=== PATIENT | male | born 1955 | race Caucasian/White ===

== ENCOUNTER 2017-04-06 19:22 | Inpatient (IN) | payer BC, OTHER ==
[~2017-04-06] VITALS: Ht 175.3 cm; Wt 81.0 kg
[~2017-04-06 19:22] MED LIST: AMLODIPINE BESY10 MG PO; ASCORBIC ACID500 M3 PO; ASPIRIN81 M2 PO; CALCIUM ACETAT667 MG PO; CATAPRES0.1 MG PO; DAILY VITE1 EAC1 PO; EMLA 30 GM30 GM TP; IRON TAB PO; LABETALOL HCL100 MG PO; LANTUS 3 M100 UNITS1 SC; LEVAQUIN500 MG PO; LEVAQUIN750 MG PO; LIPITOR20 MG PO; LISINOPRIL20 MG PO; METOPROLOL SUCC25 MG PO; METOPROLOL SUCC50 MG PO; NOVOLOG100 UNIT/1 SC; PRILOSEC20 MG PO; VITAMIN D1000 UNIT PO; ZANTAC150 MG PO; ZETIA10 MG PO
[2017-04-06 20:14] LABS: HEMATOCRIT 30.1 % (38.0-50.0); MCH 28.7 PG (29.0-34.0); MCHC 32.9 G/DL (30.0-36.0); MCV 87.2 FL (86-99); MEAN PLAT.VOLUME 9.7 uM^3 (9.0-12.4); PLATELET COUNT 112 K/uL (156-360); RBC DIS.WIDTH-CV 18.6 % (11.8-14.6); RBC DIS.WIDTH-SD 59.3 % (39-53); RED BLOOD COUNT 3.45 M/uL (4.00-5.50)
[2017-04-06 20:18] LABS: CHLORIDE 97 mEq/L (99-109); POTASSIUM 4.4 mEq/L (3.7-5.4); SODIUM 137 mEq/L (136-147)
[2017-04-06 20:19] LABS: GLUCOSE 126 mg/dL (70-99)
[2017-04-06 20:21] LABS: ANION GAP 13 MEQ/L (2-14)
[2017-04-06 20:23] LABS: GFR ESTIMATE (CALCULATED) 11 mL/min/
[2017-04-06 20:24] LABS: UREA NITROGEN (BUN) 43 mg/dL (9-23)
[2017-04-06 20:46] LABS: TROP-I INTERPRETATION POSITIVE; TROPONIN-I 11.83 ng/mL (0.0-0.30)
[2017-04-06 21:26] LABS: INTER. NORMALIZED RATIO 1.4; PROTHROMBIN TIME 13.9 (9.2-11.2); PTT 32.9 (25-32)
[2017-04-06] MEDS ORDERED: ZESTRIL20 MG PO (21:29)
[2017-04-06] MEDS ORDERED: DIALYVITE 3,001 EACH PO (21:30)
[2017-04-06] MEDS ORDERED: SENSIPAR90 MG PO (21:31)
[2017-04-06] MEDS ORDERED: FUROSEMIDE20 MG PO (21:31)
[2017-04-06] MEDS ORDERED: COMPAZINE10 MG PO (21:32)
[2017-04-06] MEDS ORDERED: DIALYSIS (21:33)
[2017-04-07 01:12] VITALS: BP 112/68
[2017-04-07 04:33] VITALS: BP 126/64
[2017-04-07 06:24] LABS: TROP-I INTERPRETATION POSITIVE; TROPONIN-I 10.19 ng/mL (0.0-0.30)
[2017-04-07 06:25] LABS: HEMATOCRIT 30.6 % (38.0-50.0); MCH 28.7 PG (29.0-34.0); MCHC 32.7 G/DL (30.0-36.0); MCV 87.9 FL (86-99); MEAN PLAT.VOLUME 10.6 uM^3 (9.0-12.4); PLATELET COUNT 109 K/uL (156-360); RBC DIS.WIDTH-CV 18.8 % (11.8-14.6); RBC DIS.WIDTH-SD 59.7 % (39-53); RED BLOOD COUNT 3.48 M/uL (4.00-5.50); WHITE BLOOD COUNT 6.2 K/uL (4.1-10.2)
[2017-04-07 06:39] LABS: DIRECT BILIRUBIN 0.9 mg/dL (0.0-0.3); TOTAL BILIRUBIN 1.6 MG/DL (0.0-1.0)
[2017-04-07 06:44] LABS: ALKALINE PHOSPHATASE 272 IU/L (3-129)
[2017-04-07 08:12] VITALS: BP 134/63
[2017-04-07 08:24] LABS: POINT-OF-CARE METER ID UU14174216
[2017-04-07 14:48] LABS: TROP-I INTERPRETATION POSITIVE; TROPONIN-I 10.73 ng/mL (0.0-0.30)
[2017-04-07 16:49] LABS: POINT-OF-CARE METER ID UU13113819
[2017-04-07 18:56] LABS: ANION GAP 16 MEQ/L (2-14); CHLORIDE 97 MEQ/L (99-109); POTASSIUM 4.7 MEQ/L (3.7-5.4); SAMPLE HEMOLYSIS CHECK 0; SAMPLE ICTERIC CHECK 0; SAMPLE LIPEMIA CHECK 0; SODIUM 136 MEQ/L (136-147)
[2017-04-07 19:02] LABS: GFR ESTIMATE (CALCULATED) 10 mL/min/; UREA NITROGEN (BUN) 52 mg/dL (9-23)
[2017-04-07 19:53] LABS: GLUCOSE 85 mg/dL (70-99)
[2017-04-07 22:29] VITALS: BP 142/63
[2017-04-07 22:38] LABS: POINT-OF-CARE METER ID UU13113781
[2017-04-07 23:14] LABS: HEMATOCRIT 33.5 % (38.0-50.0); MCH 28.4 PG (29.0-34.0); MCHC 32.2 G/DL (30.0-36.0); MCV 88.2 FL (86-99); MEAN PLAT.VOLUME 9.5 uM^3 (9.0-12.4); PLATELET COUNT 123 K/uL (156-360); RBC DIS.WIDTH-CV 18.8 % (11.8-14.6); RBC DIS.WIDTH-SD 61.3 % (39-53); WHITE BLOOD COUNT 5.8 K/uL (4.1-10.2)
[2017-04-07 23:22] LABS: CHLORIDE 98 mEq/L (99-109); POTASSIUM 4.1 mEq/L (3.7-5.4); SODIUM 138 mEq/L (136-147)
[2017-04-07 23:23] LABS: GLUCOSE 96 mg/dL (70-99)
[2017-04-07 23:25] LABS: ANION GAP 12 MEQ/L (2-14); INTER. NORMALIZED RATIO 1.3; PROTHROMBIN TIME 13.4 (9.2-11.2)
[2017-04-07 23:27] LABS: GFR ESTIMATE (CALCULATED) 16 mL/min/
[2017-04-07 23:28] LABS: UREA NITROGEN (BUN) 28 mg/dL (9-23)
[2017-04-07 23:38] LABS: TROP-I INTERPRETATION POSITIVE; TROPONIN-I 11.37 ng/mL (0.0-0.30)
[2017-04-08 00:06] LABS: ANISOCYTOSIS 2+; EOSINOPHIL (%) 0.5 % (0-5); IMMATURE GRANULOCYTE (%) 0.5 % (0.0-0.7); LYMPHOCYTE COUNT 0.3 K/uL (1.0-2.8); MACROCYTES 1+; MICROCYTOSIS 1+; MONOCYTE (%) 7.6 % (3-12); MONOCYTE COUNT 0.4 K/uL (0-0.8); NEUTROPHIL (%) 85.7 % (45-76); OVALOCYTES 2+; POIKILOCYTOSIS 1+
[2017-04-08 00:45] VITALS: BP 127/58
[2017-04-08 04:50] VITALS: BP 136/60
[2017-04-08 07:05] LABS: MCH 27.9 PG (29.0-34.0); MCHC 31.9 G/DL (30.0-36.0); MCV 87.3 FL (86-99); MEAN PLAT.VOLUME 10.7 uM^3 (9.0-12.4); PLATELET COUNT 125 K/uL (156-360); RBC DIS.WIDTH-CV 18.7 % (11.8-14.6); RBC DIS.WIDTH-SD 60.6 % (39-53); RED BLOOD COUNT 3.55 M/uL (4.00-5.50); WHITE BLOOD COUNT 5.9 K/uL (4.1-10.2)
[2017-04-08 07:26] LABS: ALKALINE PHOSPHATASE 256 IU/L (3-129); ANION GAP 11 MEQ/L (2-14); CHLORIDE 95 MEQ/L (99-109); GFR ESTIMATE (CALCULATED) 15 mL/min/; GLUCOSE 107 mg/dL (70-99); POTASSIUM 4.2 MEQ/L (3.7-5.4); SAMPLE HEMOLYSIS CHECK 0; SAMPLE ICTERIC CHECK 0; SAMPLE LIPEMIA CHECK 0; SODIUM 133 MEQ/L (136-147); TOTAL BILIRUBIN 1.6 MG/DL (0.0-1.0); UREA NITROGEN (BUN) 29 mg/dL (9-23)
[2017-04-08 07:27] LABS: ANION GAP 12 MEQ/L (2-14); CHLORIDE 95 MEQ/L (99-109); GFR ESTIMATE (CALCULATED) 15 mL/min/; GLUCOSE 106 mg/dL (70-99); POTASSIUM 4.3 MEQ/L (3.7-5.4); SAMPLE HEMOLYSIS CHECK 0; SAMPLE ICTERIC CHECK 0; SAMPLE LIPEMIA CHECK 0; SODIUM 134 MEQ/L (136-147); UREA NITROGEN (BUN) 30 mg/dL (9-23)
[2017-04-08 07:57] VITALS: BP 136/63
[2017-04-08 08:27] LABS: EOSINOPHIL (%) 0.2 % (0-5); IMMATURE GRANULOCYTE (%) 0.3 % (0.0-0.7); INSTRUMENT ABS NEUTROPHIL CT 5.1 K/uL; LYMPHOCYTE COUNT 0.3 K/uL (1.0-2.8); MONOCYTE (%) 7.8 % (3-12); MONOCYTE COUNT 0.5 K/uL (0-0.8); NEUTROPHIL (%) 86.3 % (45-76); NEUTROPHIL COUNT 5.1 K/uL (1.8-6.4)
[2017-04-08 09:46] LABS: HBSG INDEX 0.23
[2017-04-08 11:04] LABS: POINT-OF-CARE METER ID UU14174216
[2017-04-08 11:30] VITALS: BP 122/59
[2017-04-08 15:00] VITALS: BP 133/65
[2017-04-08 16:41] LABS: POINT-OF-CARE METER ID UU13113781
[2017-04-08 20:00] VITALS: BP 133/64
[2017-04-08 22:21] LABS: POINT-OF-CARE USER ID NUTSLF44
[2017-04-09 00:17] VITALS: BP 118/56
[2017-04-09 04:37] VITALS: BP 139/62
[2017-04-09 07:47] LABS: EOSINOPHIL (%) 0.8 % (0-5); EOSINOPHIL COUNT 0.1 K/uL (0-0.3); HEMATOCRIT 30.5 % (38.0-50.0); IMMATURE GRANULOCYTE (%) 0.7 % (0.0-0.7); INSTRUMENT ABS NEUTROPHIL CT 5.1 K/uL; LYMPHOCYTE COUNT 0.4 K/uL (1.0-2.8); MCH 29.1 PG (29.0-34.0); MCHC 33.1 G/DL (30.0-36.0); MCV 87.9 FL (86-99); MEAN PLAT.VOLUME 10.1 uM^3 (9.0-12.4); MONOCYTE (%) 8.8 % (3-12); MONOCYTE COUNT 0.5 K/uL (0-0.8); NEUTROPHIL (%) 82.4 % (45-76); NEUTROPHIL COUNT 5.1 K/uL (1.8-6.4); PLATELET COUNT 130 K/uL (156-360); RBC DIS.WIDTH-CV 18.9 % (11.8-14.6); RBC DIS.WIDTH-SD 61.4 % (39-53); RED BLOOD COUNT 3.47 M/uL (4.00-5.50); WHITE BLOOD COUNT 6.1 K/uL (4.1-10.2)
[2017-04-09 08:00] VITALS: BP 125/60
[2017-04-09 08:03] LABS: Estimated Average Glucose 143 mg/dL (70-123); HEMOGLOBIN A1c (GLYCOHEMOGLOB) 6.6 % HGB (Below 5.7)
[2017-04-09 08:14] LABS: ALKALINE PHOSPHATASE 283 IU/L (3-129); ANION GAP 12 MEQ/L (2-14); CHLORIDE 93 MEQ/L (99-109); GFR ESTIMATE (CALCULATED) 11 mL/min/; GLUCOSE 90 mg/dL (70-99); HDL CHOLESTEROL 29 MG/DL (Desirable>=40); LDL CHOLESTEROL 47 mg/dL (Desirable<100); NON-HDL CHOLESTEROL 63 mg/dL (Desirable<160); POTASSIUM 4.1 MEQ/L (3.7-5.4); SAMPLE HEMOLYSIS CHECK 0; SAMPLE ICTERIC CHECK 0; SAMPLE LIPEMIA CHECK 0; SODIUM 132 MEQ/L (136-147); TOTAL BILIRUBIN 1.3 MG/DL (0.0-1.0); TOTAL CHOLESTEROL 92 mg/dL (Desirable<200); TRIGLYCERIDES 80 MG/DL (Normal: <150)
[2017-04-09 08:15] LABS: UREA NITROGEN (BUN) 44 mg/dL (9-23)
[2017-04-09 11:52] VITALS: BP 140/65
[2017-04-09 17:42] VITALS: BP 132/60
[2017-04-09 19:30] VITALS: BP 107/54
[2017-04-09 21:01] LABS: POINT-OF-CARE USER ID ENVMNS
[2017-04-10 00:06] VITALS: BP 115/54
[2017-04-10 03:19] VITALS: BP 92/44
[2017-04-10 07:30] VITALS: BP 134/62
[2017-04-10 11:51] VITALS: BP 130/62
[2017-04-10] MEDS ORDERED: DOCUSATE SODIU100 MG PO (13:56)
[2017-04-10] MEDS ORDERED: CLOPIDOGREL75 MG PO (13:56)
== END 2017-04-10 15:54 | disposition home health service (06) | DRG 248 ==
LOC: EME → EDBD 19:22 → EDOF 04-07 00:14 → 4EAST 04-07 00:14
PROVIDERS: Emergency Medicine; Hospitalist; Internal Medicine; Internal Medicine Nephrology
PROC: B2151ZZ Fluoroscopy of Left Heart using Low Osmolar Contrast (ICD-10-PCS; principal; 2017-04-07)
PROC: 3E073KZ Introduction of Other Diagnostic Substance into Coronary Artery, Percutaneous Approach (ICD-10-PCS; principal; 2017-04-07)
PROC: 02703D6 Dilation of Coronary Artery, One Artery, Bifurcation, with Intraluminal Device, Percutaneous Approach (ICD-10-PCS; principal; 2017-04-07)
PROC: B2131ZZ Fluoroscopy of Multiple Coronary Artery Bypass Grafts using Low Osmolar Contrast (ICD-10-PCS; principal; 2017-04-07)
PROC: 4A023N7 Measurement of Cardiac Sampling and Pressure, Left Heart, Percutaneous Approach (ICD-10-PCS; principal; 2017-04-07)
PROC: 5A1D60Z (ICD-10-PCS; 2017-04-07)
DX: I21.4 Non-ST elevation (NSTEMI) myocardial infarction (principal); I63.9 Cerebral infarction, unspecified; I63.233 Cerebral infarction due to unspecified occlusion or stenosis of bilateral carotid arteries; I25.810 Atherosclerosis of coronary artery bypass graft(s) without angina pectoris; I25.10 Atherosclerotic heart disease of native coronary artery without angina pectoris; H53.47 Heteronymous bilateral field defects; I12.0 Hypertensive chronic kidney disease with stage 5 chronic kidney disease or end stage renal disease; N18.6 End stage renal disease; I65.23 Occlusion and stenosis of bilateral carotid arteries; E11.22 Type 2 diabetes mellitus with diabetic chronic kidney disease; E78.5 Hyperlipidemia, unspecified; D69.6 Thrombocytopenia, unspecified; D64.9 Anemia, unspecified; K21.9 Gastro-esophageal reflux disease without esophagitis; Z95.1 Presence of aortocoronary bypass graft; Z99.2 Dependence on renal dialysis; Z79.4 Long term (current) use of insulin; Z87.891 Personal history of nicotine dependence
CPT/HCPCS: 70450; 70496; 70498; 70551; 71020; 80048; 80048 91; 80053; 80061; 80069; 80076; 82948; 83036; 84484; 85025; 85027; 85347; 85610; 85730; 87340; 93005; 93880; 96125 GN; 97530 GP; 99281; 99285; C1760; C1769; C1876; C1887; C1894; J0153; J1644; J1815; J2250; J2270; J3010; J3246; J7030; J7040; S0028

== ENCOUNTER → 2017-04-14 | Outpatient (CLI) | payer BC, OTHER ==
[~2017-04-14] MED LIST changes: +AGONEAZE 2.5%-1 EACH TP; +CLOPIDOGREL75 MG PO; +COLACE100 MG PO; +COMPAZINE10 MG PO; +DIALYSIS; +DIALYVITE 3,001 EACH PO; +DOCUSATE SODIU100 MG PO; +FUROSEMIDE20 MG PO; +SENSIPAR90 MG PO; +ZESTRIL20 MG PO
== END | disposition home or self-care (01) ==
LOC: RAD 12:43
DX: J90 Pleural effusion, not elsewhere classified (principal); J98.11 Atelectasis
CPT/HCPCS: 71020; 94640

== ENCOUNTER 2017-04-15 19:27 | Inpatient (IN) | payer BC, OTHER ==
[~2017-04-15] VITALS: Ht 175.3 cm; Wt 79.9 kg
[~2017-04-15 19:27] MED LIST changes: -AGONEAZE 2.5%-1 EACH TP; -COLACE100 MG PO
[2017-04-15 21:06] LABS: CHLORIDE 99 mEq/L (99-109); POTASSIUM 4.7 mEq/L (3.7-5.4)
[2017-04-15 21:08] LABS: GLUCOSE 142 mg/dL (70-99); HEMATOCRIT 31.9 % (38.0-50.0); MCH 28.6 PG (29.0-34.0); MCHC 32.3 G/DL (30.0-36.0); MCV 88.6 FL (86-99); MEAN PLAT.VOLUME 9.7 uM^3 (9.0-12.4); PLATELET COUNT 131 K/uL (156-360); RBC DIS.WIDTH-CV 19.1 % (11.8-14.6); RBC DIS.WIDTH-SD 61.7 % (39-53); WHITE BLOOD COUNT 9.9 K/uL (4.1-10.2)
[2017-04-15 21:09] LABS: ANION GAP 15 MEQ/L (2-14)
[2017-04-15 21:12] LABS: GFR ESTIMATE (CALCULATED) 11 mL/min/
[2017-04-15 21:13] LABS: SODIUM 140 mEq/L (136-147); UREA NITROGEN (BUN) 45 mg/dL (9-23)
[2017-04-16] VITALS (7 sets, daily range): BP systolic 104–142; BP diastolic 60–71
[2017-04-16] MEDS ORDERED: AGONEAZE 2.5%-1 EACH TP (00:40)
[2017-04-16] MEDS ORDERED: CLOPIDOGREL75 MG PO (00:40)
[2017-04-16] MEDS ORDERED: COLACE100 MG PO (00:40)
[2017-04-16 03:23] LABS: TOTAL BILIRUBIN 1.2 mg/dL (0.0-1.0)
[2017-04-16 03:24] LABS: ALKALINE PHOSPHATASE 400 IU/L (3-129)
[2017-04-16 03:27] LABS: DIRECT BILIRUBIN 0.8 mg/dL (0.0-0.3)
[2017-04-16 10:41] LABS: HEMATOCRIT 32.2 % (38.0-50.0); MCH 28.2 PG (29.0-34.0); MCHC 31.7 G/DL (30.0-36.0); MEAN PLAT.VOLUME 11.1 uM^3 (9.0-12.4); PLATELET COUNT 160 K/uL (156-360); RBC DIS.WIDTH-CV 19.2 % (11.8-14.6); RED BLOOD COUNT 3.62 M/uL (4.00-5.50); WHITE BLOOD COUNT 8.6 K/uL (4.1-10.2)
[2017-04-16 10:48] LABS: CHLORIDE 100 mEq/L (99-109); POTASSIUM 4.7 mEq/L (3.7-5.4); SODIUM 139 mEq/L (136-147)
[2017-04-16 10:51] LABS: ANION GAP 15 MEQ/L (2-14)
[2017-04-16 10:53] LABS: GLUCOSE 238 mg/dL (70-99)
[2017-04-16 10:54] LABS: GFR ESTIMATE (CALCULATED) 10 mL/min/
[2017-04-16 10:55] LABS: UREA NITROGEN (BUN) 55 mg/dL (9-23)
[2017-04-17 04:00] VITALS: BP 135/62
[2017-04-17 07:59] VITALS: BP 154/71
[2017-04-17 08:02] LABS: HEMATOCRIT 28.4 % (38.0-50.0); MCH 29.7 PG (29.0-34.0); MCHC 34.2 G/DL (30.0-36.0); MCV 86.9 FL (86-99); RBC DIS.WIDTH-CV 21.2 % (11.8-14.6); RBC DIS.WIDTH-SD 63.8 % (39-53); RED BLOOD COUNT 3.27 M/uL (4.00-5.50); WHITE BLOOD COUNT 9.1 K/uL (4.1-10.2)
[2017-04-17 08:03] LABS: PLATELET COUNT 438 K/uL (156-360)
[2017-04-17 08:37] LABS: ANION GAP 13 MEQ/L (2-14); CHLORIDE 97 MEQ/L (99-109); GFR ESTIMATE (CALCULATED) 15 mL/min/; GLUCOSE 244 mg/dL (70-99); SAMPLE HEMOLYSIS CHECK 0; SAMPLE ICTERIC CHECK 0; SAMPLE LIPEMIA CHECK 0; SODIUM 138 MEQ/L (136-147); UREA NITROGEN (BUN) 42 mg/dL (9-23)
[2017-04-17 11:59] LABS: POINT-OF-CARE METER ID UU14174225
[2017-04-17 12:23] VITALS: BP 144/71
[2017-04-17 15:35] VITALS: BP 144/71
[2017-04-17 19:42] VITALS: BP 131/60
[2017-04-17 21:50] LABS: POINT-OF-CARE METER ID UU14188625
[2017-04-17 23:55] VITALS: BP 124/68
[2017-04-18 03:49] VITALS: BP 121/64
[2017-04-18 07:42] VITALS: BP 146/79
[2017-04-18 11:34] VITALS: BP 138/68
[2017-04-18 12:23] LABS: HBSG INDEX 0.24
[2017-04-18 15:47] VITALS: BP 162/74
[2017-04-18 18:17] LABS: CHLORIDE 96 mEq/L (99-109); POTASSIUM 4.6 mEq/L (3.7-5.4); SODIUM 137 mEq/L (136-147)
[2017-04-18 18:19] LABS: GLUCOSE 257 mg/dL (70-99)
[2017-04-18 18:21] LABS: ANION GAP 15 MEQ/L (2-14)
[2017-04-18 18:39] LABS: UREA NITROGEN (BUN) 76 mg/dL (9-23)
[2017-04-18 18:40] LABS: ALKALINE PHOSPHATASE 295 IU/L (3-129); GFR ESTIMATE (CALCULATED) 9 mL/min/; TOTAL BILIRUBIN 0.8 mg/dL (0.0-1.0)
[2017-04-18 19:45] VITALS: BP 148/71
[2017-04-18 23:42] VITALS: BP 137/65
[2017-04-19 03:51] VITALS: BP 133/71
[2017-04-19 08:20] VITALS: BP 153/74
[2017-04-19 08:20] LABS: POINT-OF-CARE METER ID UU14174225
[2017-04-19] MEDS ORDERED: CEFDINIR300 MG PO (10:52)
[2017-04-19] MEDS ORDERED: SPIRIVA RESPIMAT4 GM IH (10:53)
[2017-04-19] MEDS ORDERED: MUCINEX600 MG PO (10:53)
[2017-04-19] MEDS ORDERED: BENZONATATE100 MG PO (10:53)
[2017-04-19 11:58] LABS: HEMATOCRIT 29.6 % (38.0-50.0); MCH 28.8 PG (29.0-34.0); MCHC 32.8 G/DL (30.0-36.0); MCV 87.8 FL (86-99); RBC DIS.WIDTH-CV 19.1 % (11.8-14.6); RED BLOOD COUNT 3.37 M/uL (4.00-5.50)
[2017-04-19 12:05] LABS: ANION GAP 16 MEQ/L (2-14); CHLORIDE 97 MEQ/L (99-109); GFR ESTIMATE (CALCULATED) 8 mL/min/; GLUCOSE 298 mg/dL (70-99); POTASSIUM 4.8 MEQ/L (3.7-5.4); SAMPLE HEMOLYSIS CHECK 0; SAMPLE ICTERIC CHECK 0; SAMPLE LIPEMIA CHECK 0; SODIUM 135 MEQ/L (136-147); UREA NITROGEN (BUN) 96 mg/dL (9-23)
[2017-04-19] MEDS ORDERED: PREDNISONE10 MG PO (12:27)
[2017-04-19 12:40] LABS: PLAT.SUFFICIENCY ADEQUATE
[2017-04-19 12:41] LABS: MEAN PLAT.VOLUME 10.3 uM^3 (9.0-12.4); PLATELET COUNT 166 K/uL (156-360)
[2017-04-19 15:39] VITALS: BP 132/65
== END 2017-04-19 16:28 | disposition home health service (06) | DRG 190 ==
LOC: EME 19:27 → 5SOUTH 23:05 → EDOF 23:05 → 5SOUTH 04-16 00:09
PROVIDERS: Internal Medicine; Internal Medicine Nephrology; Physician Assistant; Physician Assistant Medical; Surgery
PROC: 5A1D60Z (ICD-10-PCS; principal; 2017-04-16)
DX: J44.0 Chronic obstructive pulmonary disease with (acute) lower respiratory infection (principal); J69.0 Pneumonitis due to inhalation of food and vomit; J18.9 Pneumonia, unspecified organism; J90 Pleural effusion, not elsewhere classified; R18.8 Other ascites; I12.0 Hypertensive chronic kidney disease with stage 5 chronic kidney disease or end stage renal disease; N18.6 End stage renal disease; D63.1 Anemia in chronic kidney disease; I25.10 Atherosclerotic heart disease of native coronary artery without angina pectoris; J44.1 Chronic obstructive pulmonary disease with (acute) exacerbation; K80.21 Calculus of gallbladder without cholecystitis with obstruction; E11.22 Type 2 diabetes mellitus with diabetic chronic kidney disease; Z99.2 Dependence on renal dialysis; R60.0 Localized edema; E11.21 Type 2 diabetes mellitus with diabetic nephropathy; E11.319 Type 2 diabetes mellitus with unspecified diabetic retinopathy without macular edema; E11.42 Type 2 diabetes mellitus with diabetic polyneuropathy; Z79.4 Long term (current) use of insulin; I25.2 Old myocardial infarction; E11.51 Type 2 diabetes mellitus with diabetic peripheral angiopathy without gangrene; E78.5 Hyperlipidemia, unspecified; I35.0 Nonrheumatic aortic (valve) stenosis; I65.29 Occlusion and stenosis of unspecified carotid artery; Z87.891 Personal history of nicotine dependence; H54.12 Blindness, left eye, low vision right eye; R09.02 Hypoxemia; Y95 Nosocomial condition; H53.47 Heteronymous bilateral field defects; I69.398 Other sequelae of cerebral infarction; R79.89 Other specified abnormal findings of blood chemistry
CPT/HCPCS: 71020; 71250; 76705; 80048; 80053; 80069; 80076; 82948; 85027; 87040; 87340; 93005; 94640; 94640 76; 99202; 99281; 99285; J0696; J1644; J1815; J2930; J7050; S0030

== ENCOUNTER 2017-05-03 05:42 | Emergency (ER) | payer OTHER, BC ==
[~2017-05-03] VITALS: Ht 175.3 cm; Wt 80.2 kg
[~2017-05-03 05:42] MED LIST changes: +AGONEAZE 2.5%-1 EACH TP; +BENZONATATE100 MG PO; +CEFDINIR300 MG PO; +COLACE100 MG PO; +MUCINEX600 MG PO; +PREDNISONE10 MG PO; +SPIRIVA RESPIMAT4 GM IH
[2017-05-03 06:59] LABS: CHLORIDE 97 mEq/L (99-109); EOSINOPHIL (%) 1.7 % (0-5); EOSINOPHIL COUNT 0.1 K/uL (0-0.3); HEMATOCRIT 27.6 % (38.0-50.0); IMMATURE GRANULOCYTE (%) 0.3 % (0.0-0.7); INSTRUMENT ABS NEUTROPHIL CT 5.3 K/uL; LYMPHOCYTE COUNT 0.5 K/uL (1.0-2.8); MCHC 32.2 G/DL (30.0-36.0); MCV 89.9 FL (86-99); MONOCYTE COUNT 0.5 K/uL (0-0.8); NEUTROPHIL (%) 81.7 % (45-76); NEUTROPHIL COUNT 5.3 K/uL (1.8-6.4); POTASSIUM 4.9 mEq/L (3.7-5.4); RBC DIS.WIDTH-CV 20.1 % (11.8-14.6); RBC DIS.WIDTH-SD 65.3 % (39-53); RED BLOOD COUNT 3.07 M/uL (4.00-5.50); SODIUM 137 mEq/L (136-147); WHITE BLOOD COUNT 6.5 K/uL (4.1-10.2)
[2017-05-03 07:01] LABS: GLUCOSE 98 mg/dL (70-99)
[2017-05-03 07:03] LABS: ANION GAP 17 MEQ/L (2-14)
[2017-05-03 07:05] LABS: ALKALINE PHOSPHATASE 252 IU/L (3-129); GFR ESTIMATE (CALCULATED) 7 mL/min/
[2017-05-03 07:07] LABS: DIRECT BILIRUBIN 0.6 mg/dL (0.0-0.3)
[2017-05-03 07:08] LABS: LIPASE 20 U/L (1.0-51.0); UREA NITROGEN (BUN) 102 mg/dL (9-23)
[2017-05-03 07:25] LABS: ADD MIUA? YES; BILIRUBIN NEGATIVE; BLOOD NEGATIVE; COLOR YELLOW ((YELLOW)); GLUCOSE (STRIP) 50; KETONES NEGATIVE; LEUKOCYTES TRACE; NITRITE NEGATIVE; PROTEIN (STRIP) 100; UROBILINOGEN 0.2 MG/DL (0.2-1.0)
[2017-05-03 07:29] LABS: BACTERIA RARE /HPF; EPITHELIAL CELLS RARE /HPF; MUCUS NONE SEEN /LPF; RED BLOOD CELLS 0-5 /HPF (0-5); WHITE BLOOD CELLS 0-5 /HPF (0-5)
[2017-05-03 08:00] LABS: MEAN PLAT.VOLUME 10.7 uM^3 (9.0-12.4); PLAT.SUFFICIENCY DECREASED
[2017-05-03 08:02] LABS: PLATELET COUNT 101 K/uL (156-360)
[2017-05-03] MEDS ORDERED: CIPRO500 MG PO (10:59)
[2017-05-03] MEDS ORDERED: FLAGYL500 MG PO (10:59)
[2017-05-03 12:03] VITALS: BP 136/61
== END 2017-05-03 12:04 | disposition home or self-care (01) ==
LOC: EME → EDBD 05:42 → EME 05:42
PROVIDERS: Emergency Medicine
DX: R10.30 Lower abdominal pain, unspecified (principal); R11.2 Nausea with vomiting, unspecified; R19.7 Diarrhea, unspecified; I12.9 Hypertensive chronic kidney disease with stage 1 through stage 4 chronic kidney disease, or unspecified chronic kidney disease; N18.9 Chronic kidney disease, unspecified; E11.9 Type 2 diabetes mellitus without complications; E78.5 Hyperlipidemia, unspecified; Z99.2 Dependence on renal dialysis; K21.9 Gastro-esophageal reflux disease without esophagitis; Z95.1 Presence of aortocoronary bypass graft; Z87.891 Personal history of nicotine dependence; Z79.4 Long term (current) use of insulin; Z79.82 Long term (current) use of aspirin
CPT/HCPCS: 74176; 80048; 80076; 81003; 83690; 85025; 87493; 99281; 99285

== ENCOUNTER 2017-06-06 05:37 | Emergency (ER) | payer BC, OTHER ==
[~2017-06-06] VITALS: Ht 175.3 cm; Wt 82.1 kg
[~2017-06-06 05:37] MED LIST changes: +CIPRO500 MG PO; +FLAGYL500 MG PO
[2017-06-06 06:08] LABS: EOSINOPHIL (%) 1.7 % (0-5); EOSINOPHIL COUNT 0.1 K/uL (0-0.3); HEMATOCRIT 29.5 % (38.0-50.0); IMMATURE GRANULOCYTE (%) 0.2 % (0.0-0.7); LYMPHOCYTE COUNT 0.6 K/uL (1.0-2.8); MCHC 30.2 G/DL (30.0-36.0); MCV 96.1 FL (86-99); MEAN PLAT.VOLUME 9.7 uM^3 (9.0-12.4); MONOCYTE (%) 10.8 % (3-12); MONOCYTE COUNT 0.4 K/uL (0-0.8); NEUTROPHIL (%) 72.8 % (45-76); PLATELET COUNT 123 K/uL (156-360); RBC DIS.WIDTH-CV 16.6 % (11.8-14.6); RBC DIS.WIDTH-SD 58.3 % (39-53); RED BLOOD COUNT 3.07 M/uL (4.00-5.50); WHITE BLOOD COUNT 4.1 K/uL (4.1-10.2)
[2017-06-06 06:19] LABS: CHLORIDE 98 mEq/L (99-109); POTASSIUM 5.3 mEq/L (3.7-5.4); SODIUM 140 mEq/L (136-147)
[2017-06-06 06:21] LABS: GLUCOSE 124 mg/dL (70-99)
[2017-06-06 06:22] LABS: ANION GAP 14 MEQ/L (2-14)
[2017-06-06 06:24] LABS: ALKALINE PHOSPHATASE 500 IU/L (3-129)
[2017-06-06 06:25] LABS: GFR ESTIMATE (CALCULATED) 10 mL/min/
[2017-06-06 06:26] LABS: UREA NITROGEN (BUN) 50 mg/dL (9-23)
[2017-06-06 06:28] LABS: LIPASE 49 U/L (1.0-51.0)
[2017-06-06 07:55] VITALS: BP 142/63
[2017-06-11] MEDS ORDERED: FERRIC CITRATE210 MG PO (12:57)
[2017-06-11] MEDS ORDERED: SENSIPAR30 MG PO (13:17)
[2017-06-11] MEDS ORDERED: NOVOLOG100 UNIT/1 SC (13:19)
[2017-06-11] MEDS ORDERED: LABETALOL HCL200 MG PO ×2 (13:26→13:27)
== END 2017-06-06 07:57 | disposition home or self-care (01) ==
LOC: EME → EDBD 05:37 → EME 07:57
PROVIDERS: Emergency Medicine
DX: R10.31 Right lower quadrant pain (principal); R10.32 Left lower quadrant pain; G89.29 Other chronic pain; K80.20 Calculus of gallbladder without cholecystitis without obstruction; K57.30 Diverticulosis of large intestine without perforation or abscess without bleeding; I12.0 Hypertensive chronic kidney disease with stage 5 chronic kidney disease or end stage renal disease; E11.22 Type 2 diabetes mellitus with diabetic chronic kidney disease; N18.6 End stage renal disease; Z99.2 Dependence on renal dialysis; Z87.891 Personal history of nicotine dependence; Z79.4 Long term (current) use of insulin; E78.5 Hyperlipidemia, unspecified; Z95.1 Presence of aortocoronary bypass graft; Z79.82 Long term (current) use of aspirin
CPT/HCPCS: 74176; 80053; 81003; 83690; 85025; 99281; 99284

== ENCOUNTER 2017-06-09 07:27 | Emergency (ER) | payer OTHER, BC ==
[~2017-06-09] VITALS: Ht 175.3 cm; Wt 81.0 kg
[2017-06-09 08:10] LABS: HEMATOCRIT 29.5 % (38.0-50.0); MCH 29.4 PG (29.0-34.0); MCHC 30.8 G/DL (30.0-36.0); MCV 95.5 FL (86-99); MEAN PLAT.VOLUME 9.8 uM^3 (9.0-12.4); PLATELET COUNT 135 K/uL (156-360); RBC DIS.WIDTH-CV 16.5 % (11.8-14.6); RBC DIS.WIDTH-SD 57.7 % (39-53); RED BLOOD COUNT 3.09 M/uL (4.00-5.50); WHITE BLOOD COUNT 3.7 K/uL (4.1-10.2)
[2017-06-09 08:51] LABS: ALKALINE PHOSPHATASE 412 IU/L (3-129); ANION GAP 12 MEQ/L (2-14); CHLORIDE 100 MEQ/L (99-109); GFR ESTIMATE (CALCULATED) 10 mL/min/; GLUCOSE 136 mg/dL (70-99); LIPASE 26 U/L (1.0-51.0); POTASSIUM 4.4 MEQ/L (3.7-5.4); SAMPLE HEMOLYSIS CHECK 0; SAMPLE ICTERIC CHECK 0; SAMPLE LIPEMIA CHECK 0; SODIUM 140 MEQ/L (136-147); TOTAL BILIRUBIN 1.1 MG/DL (0.0-1.0); UREA NITROGEN (BUN) 44 mg/dL (9-23)
[2017-06-09 12:18] VITALS: BP 138/71
[2017-06-11] MEDS ORDERED: FERRIC CITRATE210 MG PO (12:57)
[2017-06-11] MEDS ORDERED: SENSIPAR30 MG PO (13:17)
[2017-06-11] MEDS ORDERED: NOVOLOG100 UNIT/1 SC (13:19)
[2017-06-11] MEDS ORDERED: LABETALOL HCL200 MG PO ×2 (13:26→13:27)
[2017-06-16] MEDS ORDERED: LANTUS 3 M100 UNITS1 SC (07:23)
== END 2017-06-09 12:23 | disposition home or self-care (01) ==
LOC: EME 07:27
PROVIDERS: Nurse Practitioner Family
DX: K80.20 Calculus of gallbladder without cholecystitis without obstruction (principal); K59.00 Constipation, unspecified; D64.9 Anemia, unspecified; I12.0 Hypertensive chronic kidney disease with stage 5 chronic kidney disease or end stage renal disease; E11.22 Type 2 diabetes mellitus with diabetic chronic kidney disease; N18.6 End stage renal disease; Z99.2 Dependence on renal dialysis; Z79.4 Long term (current) use of insulin; E78.5 Hyperlipidemia, unspecified; K21.9 Gastro-esophageal reflux disease without esophagitis; Z95.1 Presence of aortocoronary bypass graft; Z87.891 Personal history of nicotine dependence
CPT/HCPCS: 74020; 76705; 80053; 83690; 85027; 93005; 99281; 99284; J7030

== ENCOUNTER 2017-09-08 11:10 | Day surgery (SDC) | payer OTHER, BC ==
[~2017-09-08] VITALS: Ht 175.3 cm; Wt 72.6 kg
[~2017-09-08 11:10] MED LIST changes: +FERRIC CITRATE210 MG PO; +LABETALOL HCL200 MG PO; +LINZESS72 MCG PO; +SENSIPAR30 MG PO; +SPIRIVA RESPIMAT4 G1 IH
[2017-09-08 11:47] LABS: POINT-OF-CARE METER ID UU14174212
[2017-09-08 11:54] LABS: HEMATOCRIT 33.5 % (38.0-50.0); MCH 29.9 PG (29.0-34.0); MCHC 32.2 G/DL (30.0-36.0); MCV 92.8 FL (86-99); MEAN PLAT.VOLUME 10.1 uM^3 (9.0-12.4); PLATELET COUNT 127 K/uL (156-360); RBC DIS.WIDTH-CV 18.2 % (11.8-14.6); RBC DIS.WIDTH-SD 62.5 % (39-53); RED BLOOD COUNT 3.61 M/uL (4.00-5.50); WHITE BLOOD COUNT 3.3 K/uL (4.1-10.2)
[2017-09-08 12:07] VITALS: BP 71/50
[2017-09-08 12:12] LABS: ANION GAP 7 MEQ/L (2-14); CHLORIDE 97 MEQ/L (99-109); SAMPLE HEMOLYSIS CHECK 0; SAMPLE ICTERIC CHECK 0; SAMPLE LIPEMIA CHECK 0; SODIUM 142 MEQ/L (136-147)
[2017-09-08 12:18] LABS: GFR ESTIMATE (CALCULATED) 22 mL/min/; GLUCOSE 59 mg/dL (70-99); UREA NITROGEN (BUN) 18 mg/dL (9-23)
[2017-09-08 12:42] LABS: POINT-OF-CARE METER ID UU14107333
[2017-09-08 12:58] LABS: METH RESISTANT S AUREUS PCR NEGATIVE (NEGATIVE)
[2017-09-08 12:59] LABS: PROBE CHECK PASS; SPECIMEN PROCESSING CONTROL PASS
[2017-09-08 15:28] LABS: POINT-OF-CARE METER ID UU13113675; POINT-OF-CARE USER ID 515036437
[2017-09-08 16:05] VITALS: BP 138/63
[2017-09-08 16:52] VITALS: BP 156/69
== END 2017-09-08 16:54 | disposition home or self-care (01) ==
LOC: SDC 11:10
PROVIDERS: Surgery
DX: T82.41XA Breakdown (mechanical) of vascular dialysis catheter, initial encounter (principal); I12.0 Hypertensive chronic kidney disease with stage 5 chronic kidney disease or end stage renal disease; E11.22 Type 2 diabetes mellitus with diabetic chronic kidney disease; N18.6 End stage renal disease; Z99.2 Dependence on renal dialysis; K21.9 Gastro-esophageal reflux disease without esophagitis; I44.4 Left anterior fascicular block; Z79.4 Long term (current) use of insulin; Z79.82 Long term (current) use of aspirin; Z79.02 Long term (current) use of antithrombotics/antiplatelets; Z95.1 Presence of aortocoronary bypass graft; Z86.73 Personal history of transient ischemic attack (TIA), and cerebral infarction without residual deficits; Z87.891 Personal history of nicotine dependence
CPT/HCPCS: 80048; 82948; 85027; 87641; J0690; J1644; J2250; J2720; J3010

== ENCOUNTER 2017-12-03 05:50 | Inpatient (IN) | payer OTHER, MEDICARE ==
[~2017-12-03] VITALS: Ht 175.3 cm; Wt 73.7 kg
[2017-12-03 07:48] LABS: HEMATOCRIT 33.9 % (38.0-50.0); HEMOGLOBIN 11.1 G/DL (12.5-16.6); MCH 32.8 PG (29.0-34.0); MCHC 32.7 G/DL (30.0-36.0); MCV 100.3 FL (86-99); PLATELET COUNT 116 K/uL (156-360); RBC DIS.WIDTH-CV 15.8 % (11.8-14.6); RBC DIS.WIDTH-SD 58.1 % (39-53); RED BLOOD COUNT 3.38 M/uL (4.00-5.50); WHITE BLOOD COUNT 3.4 K/uL (4.1-10.2)
[2017-12-03 08:19] LABS: CHLORIDE 97 mEq/L (99-109); POTASSIUM 4.8 mEq/L (3.7-5.4); SODIUM 139 mEq/L (136-147)
[2017-12-03 08:21] LABS: GLUCOSE 144 mg/dL (70-99)
[2017-12-03 08:25] LABS: CREATININE 5.4 mg/dL (0.6-1.3); GFR ESTIMATE (CALCULATED) 11 mL/min/ (58.99-99999)
[2017-12-03 08:26] LABS: UREA NITROGEN (BUN) 34 mg/dL (9-23)
[2017-12-03 08:27] LABS: TROP-I INTERPRETATION NEGATIVE; TROPONIN-I 0.06 ng/mL (0.0-0.30)
[2017-12-03 10:34] LABS: INTER. NORMALIZED RATIO 1.2
[2017-12-03 10:37] LABS: PTT 33.4 SEC (25-37)
[2017-12-03 12:27] LABS: HEMOGLOBIN A1c (GLYCOHEMOGLOB) 5.9 % (Below 5.7)
[2017-12-03 20:59] VITALS: BP 153/67
[2017-12-04 00:25] VITALS: BP 140/65
[2017-12-04 07:01] LABS: HEMOGLOBIN 10.7 G/DL (12.5-16.6); MCH 32.5 PG (29.0-34.0); MCHC 32.4 G/DL (30.0-36.0); MCV 100.3 FL (86-99); PLATELET COUNT 112 K/uL (156-360); RBC DIS.WIDTH-CV 15.6 % (11.8-14.6); RBC DIS.WIDTH-SD 57.2 % (39-53); RED BLOOD COUNT 3.29 M/uL (4.00-5.50); WHITE BLOOD COUNT 3.7 K/uL (4.1-10.2)
[2017-12-04 07:25] LABS: CHLORIDE 101 MEQ/L (99-109); GFR ESTIMATE (CALCULATED) 16 mL/min/ (58.99-99999); GLUCOSE 140 mg/dL (70-99); POTASSIUM 4.2 MEQ/L (3.7-5.4); SODIUM 141 MEQ/L (136-147); UREA NITROGEN (BUN) 21 mg/dL (9-23)
[2017-12-04 07:28] VITALS: BP 155/67
[2017-12-04 07:34] LABS: CREATININE 4.1 MG/DL (0.6-1.3)
[2017-12-04] MEDS ORDERED: PROTONIX40 MG PO (09:42)
[2017-12-04] MEDS ORDERED: PLAVIX75 MG PO (11:09)
[2017-12-04 12:00] VITALS: BP 126/60
[2017-12-04 16:00] VITALS: BP 116/60
[2017-12-04 19:55] VITALS: BP 130/65
[2017-12-05 00:55] VITALS: BP 131/59
[2017-12-05 05:05] VITALS: BP 120/56
[2017-12-05 07:07] LABS: HEMOGLOBIN 11.4 G/DL (12.5-16.6); MCHC 31.7 G/DL (30.0-36.0); MCV 101.1 FL (86-99); PLATELET COUNT 128 K/uL (156-360); RBC DIS.WIDTH-CV 15.3 % (11.8-14.6); RBC DIS.WIDTH-SD 56.6 % (39-53); RED BLOOD COUNT 3.56 M/uL (4.00-5.50); WHITE BLOOD COUNT 4.5 K/uL (4.1-10.2)
[2017-12-05 07:29] LABS: CHLORIDE 98 MEQ/L (99-109); GFR ESTIMATE (CALCULATED) 12 mL/min/ (58.99-99999); SODIUM 140 MEQ/L (136-147); UREA NITROGEN (BUN) 31 mg/dL (9-23)
[2017-12-05 07:35] LABS: CREATININE 5.3 MG/DL (0.6-1.3); GLUCOSE 81 mg/dL (70-99)
[2017-12-05 08:55] LABS: TYPE OF FLUID PLEURAL
[2017-12-05 09:31] LABS: APPEARANCE CLEAR-YELLOW; BODY FLUID EOSINOPHILS 0 % (0-25); BODY FLUID RBC'S < 1000 /MM^3 (0-100); BODY FLUID WBC'S 70 /MM^3 (0-500); MONONUCLEAR WBC'S 95 %; POLYNUCLEAR WBC'S 5 % (0-25)
[2017-12-05 09:44] LABS: BODY FLUID GLUCOSE 110 MG/DL; BODY FLUID LDH 61 IU/L; BODY FLUID PROTEIN < 3.0 G/DL
[2017-12-05 11:23] VITALS: BP 143/65
[2017-12-05] MEDS ORDERED: CLOPIDOGREL75 MG PO (12:49)
[2017-12-05 16:22] VITALS: BP 137/63
[2017-12-05 19:40] VITALS: BP 140/60
[2017-12-06 00:58] VITALS: BP 125/61
[2017-12-06 04:47] VITALS: BP 121/60
[2017-12-06 07:20] VITALS: BP 126/61
[2017-12-06 08:46] LABS: BASOPHIL (%) 0.3 % (0-1); EOSINOPHIL (%) 5.9 % (0-5); EOSINOPHIL COUNT 0.2 K/uL (0-0.3); HEMATOCRIT 31.7 % (38.0-50.0); HEMOGLOBIN 10.4 G/DL (12.5-16.6); IMMATURE GRANULOCYTE (%) 0.3 % (0.0-0.7); LYMPHOCYTE (%) 10.9 % (15-42); LYMPHOCYTE COUNT 0.4 K/uL (1.0-2.8); MCH 32.8 PG (29.0-34.0); MCHC 32.8 G/DL (30.0-36.0); MONOCYTE (%) 9.8 % (3-12); MONOCYTE COUNT 0.4 K/uL (0-0.8); NEUTROPHIL (%) 72.8 % (45-76); NEUTROPHIL COUNT 2.6 K/uL (1.8-6.4); PLATELET COUNT 124 K/uL (156-360); RBC DIS.WIDTH-CV 15.2 % (11.8-14.6); RBC DIS.WIDTH-SD 56.5 % (39-53); RED BLOOD COUNT 3.17 M/uL (4.00-5.50); WHITE BLOOD COUNT 3.6 K/uL (4.1-10.2)
[2017-12-06 09:00] LABS: ALBUMIN 3.3 G/DL (3.2-4.8); CHLORIDE 102 MEQ/L (99-109); POTASSIUM 5.1 MEQ/L (3.7-5.4); SODIUM 138 MEQ/L (136-147)
[2017-12-06 09:06] LABS: GFR ESTIMATE (CALCULATED) 9 mL/min/ (58.99-99999); GLUCOSE 90 mg/dL (70-99); PHOSPHORUS 4.5 mg/dL (2.5-4.9)
[2017-12-06 09:26] LABS: CREATININE 6.6 MG/DL (0.6-1.3); UREA NITROGEN (BUN) 47 mg/dL (9-23)
[2017-12-06 15:03] VITALS: BP 119/58
[2017-12-06 19:17] VITALS: BP 116/55
[2017-12-06 23:41] VITALS: BP 149/65
[2017-12-07 03:39] VITALS: BP 139/63
[2017-12-07 07:42] VITALS: BP 133/55
[2017-12-07 16:00] VITALS: BP 131/60
[2017-12-07 19:26] VITALS: BP 140/63
[2017-12-08 00:05] VITALS: BP 159/72
[2017-12-08 08:03] LABS: BASOPHIL (%) 0.3 % (0-1); EOSINOPHIL COUNT 0.2 K/uL (0-0.3); IMMATURE GRANULOCYTE (%) 0.3 % (0.0-0.7); LYMPHOCYTE COUNT 0.5 K/uL (1.0-2.8); MCH 31.3 PG (29.0-34.0); MCHC 32.3 G/DL (30.0-36.0); MCV 97.2 FL (86-99); MONOCYTE (%) 8.8 % (3-12); MONOCYTE COUNT 0.3 K/uL (0-0.8); NEUTROPHIL (%) 74.6 % (45-76); NEUTROPHIL COUNT 2.8 K/uL (1.8-6.4); PLATELET COUNT 137 K/uL (156-360); RBC DIS.WIDTH-SD 54.3 % (39-53); RED BLOOD COUNT 3.19 M/uL (4.00-5.50); WHITE BLOOD COUNT 3.8 K/uL (4.1-10.2)
[2017-12-08 08:13] VITALS: BP 140/64
[2017-12-08 08:19] LABS: CHLORIDE 100 MEQ/L (99-109); CREATININE 6.5 MG/DL (0.6-1.3); GFR ESTIMATE (CALCULATED) 9 mL/min/ (58.99-99999); SODIUM 133 MEQ/L (136-147); UREA NITROGEN (BUN) 52 mg/dL (9-23)
[2017-12-08 08:27] LABS: GLUCOSE 214 mg/dL (70-99)
[2017-12-08 12:05] VITALS: BP 146/64
[2017-12-08 16:19] VITALS: BP 142/63
[2017-12-08 20:11] VITALS: BP 144/64
[2017-12-09 00:58] VITALS: BP 140/63
[2017-12-09 07:22] VITALS: BP 124/61
== END 2017-12-09 13:05 | disposition home health service (06) | DRG 291 ==
LOC: EME 05:50 → EDOF 09:10 → 5SOUTH 09:10 → ENRESERV 09:14 → 5SOUTH 19:04 → ENPENDDIS 12-09 → 5SOUTH 12-09 13:05
PROVIDERS: Emergency Medicine; Internal Medicine; Internal Medicine Nephrology; Physician Assistant Medical
PROC: 5A1D70Z Performance of Urinary Filtration, Intermittent, Less than 6 Hours Per Day (ICD-10-PCS; principal; 2017-12-03)
PROC: 0W9930Z Drainage of Right Pleural Cavity with Drainage Device, Percutaneous Approach (ICD-10-PCS; 2017-12-05)
DX: I13.2 Hypertensive heart and chronic kidney disease with heart failure and with stage 5 chronic kidney disease, or end stage renal disease (principal); I50.23 Acute on chronic systolic (congestive) heart failure; N18.6 End stage renal disease; J91.8 Pleural effusion in other conditions classified elsewhere; J96.01 Acute respiratory failure with hypoxia; Z99.2 Dependence on renal dialysis; J18.9 Pneumonia, unspecified organism; J44.0 Chronic obstructive pulmonary disease with (acute) lower respiratory infection; I27.20 Pulmonary hypertension, unspecified; E11.22 Type 2 diabetes mellitus with diabetic chronic kidney disease; D61.818 Other pancytopenia; J44.1 Chronic obstructive pulmonary disease with (acute) exacerbation; J98.11 Atelectasis; I25.10 Atherosclerotic heart disease of native coronary artery without angina pectoris; E78.5 Hyperlipidemia, unspecified; D63.1 Anemia in chronic kidney disease; I25.5 Ischemic cardiomyopathy; H54.7 Unspecified visual loss; I25.2 Old myocardial infarction; I44.4 Left anterior fascicular block; I35.0 Nonrheumatic aortic (valve) stenosis; K21.9 Gastro-esophageal reflux disease without esophagitis; Z86.73 Personal history of transient ischemic attack (TIA), and cerebral infarction without residual deficits; Z87.891 Personal history of nicotine dependence; Z95.1 Presence of aortocoronary bypass graft; Z95.5 Presence of coronary angioplasty implant and graft; Z90.49 Acquired absence of other specified parts of digestive tract; Z79.4 Long term (current) use of insulin; Z79.82 Long term (current) use of aspirin; Z79.02 Long term (current) use of antithrombotics/antiplatelets; Z82.49 Family history of ischemic heart disease and other diseases of the circulatory system; Z83.3 Family history of diabetes mellitus
CPT/HCPCS: 71045; 71046; 71250; 76942; 80048; 80069; 82945; 82948; 83036; 83615 91; 84157; 84484; 85025; 85027; 85610; 85730; 87040; 87070; 87205; 89051; 93005; 93306; 94640; 94640 76; 97530 GP; 99202; 99281; 99285; J1644; J1815; J2270; J2405

== ENCOUNTER 2018-05-21 16:48 | Observation (INO) | payer OTHER, MEDICARE ==
[~2018-05-21] VITALS: Ht 175.3 cm; Wt 80.8 kg
[~2018-05-21 16:48] MED LIST changes: +PLAVIX75 MG PO; +PROTONIX40 MG PO
[2018-05-21 17:45] LABS: HEMATOCRIT 33.6 % (38.0-50.0); HEMOGLOBIN 11.3 G/DL (12.5-16.6); MCH 32.9 PG (29.0-34.0); MCHC 33.6 G/DL (30.0-36.0); PLATELET COUNT 129 K/uL (156-360); RBC DIS.WIDTH-CV 15.8 % (11.8-14.6); RED BLOOD COUNT 3.43 M/uL (4.00-5.50); WHITE BLOOD COUNT 4.8 K/uL (4.1-10.2)
[2018-05-21 17:56] LABS: ALBUMIN 3.6 g/dL (3.2-4.8)
[2018-05-21 17:57] LABS: CHLORIDE 100 mEq/L (99-109); POTASSIUM 4.7 mEq/L (3.7-5.4); SODIUM 140 mEq/L (136-147)
[2018-05-21 17:59] LABS: GLUCOSE 128 mg/dL (70-99); TOTAL PROTEIN 6.3 g/dL (6.4-8.3)
[2018-05-21 18:02] LABS: ALKALINE PHOSPHATASE 249 IU/L (3-129)
[2018-05-21 18:03] LABS: CREATININE 4.7 mg/dL (0.6-1.3); GFR ESTIMATE (CALCULATED) 13 mL/min/ (58.99-99999)
[2018-05-21 18:04] LABS: AST (GOT) 20 IU/L (2-34); UREA NITROGEN (BUN) 35 mg/dL (9-23)
[2018-05-21 18:06] LABS: ALT (GPT) 18 IU/L (3-49); TROP-I INTERPRETATION NEGATIVE; TROPONIN-I 0.05 ng/mL (0.0-0.30)
[2018-05-21] MEDS ORDERED: BENZONATATE100 MG PO (23:19)
[2018-05-21] MEDS ORDERED: TYLENOL PM EX-1 EACH PO (23:20)
[2018-05-21] MEDS ORDERED: CEPHALEXIN250 MG PO (23:21)
[2018-05-21] MEDS ORDERED: ASCORBIC ACID500 M3 PO (23:21)
[2018-05-22 02:13] VITALS: BP 133/94
[2018-05-22 05:54] LABS: TROP-I INTERPRETATION NEGATIVE; TROPONIN-I 0.05 ng/mL (0.0-0.30)
[2018-05-22 08:25] VITALS: BP 149/68
[2018-05-22 12:33] LABS: TROP-I INTERPRETATION NEGATIVE; TROPONIN-I 0.05 ng/mL (0.0-0.30)
[2018-05-22 12:50] VITALS: BP 138/72
== END 2018-05-22 14:12 | disposition home or self-care (01) ==
LOC: EME 16:48 → EDOF 23:58 → EME 23:58 → EDOF 23:58 → ENRESERV 05-22 00:02 → 4SOUTH 05-22 01:58
PROVIDERS: Emergency Medicine; Hospitalist
DX: J90 Pleural effusion, not elsewhere classified (principal); I12.0 Hypertensive chronic kidney disease with stage 5 chronic kidney disease or end stage renal disease; E11.22 Type 2 diabetes mellitus with diabetic chronic kidney disease; N18.6 End stage renal disease; E78.5 Hyperlipidemia, unspecified; Z99.2 Dependence on renal dialysis; I25.10 Atherosclerotic heart disease of native coronary artery without angina pectoris; Z95.1 Presence of aortocoronary bypass graft; I35.0 Nonrheumatic aortic (valve) stenosis; T82.858A Stenosis of other vascular prosthetic devices, implants and grafts, initial encounter; Z95.5 Presence of coronary angioplasty implant and graft; Z79.4 Long term (current) use of insulin; Z82.49 Family history of ischemic heart disease and other diseases of the circulatory system; Z83.3 Family history of diabetes mellitus; Z87.891 Personal history of nicotine dependence
CPT/HCPCS: 71045; 74019; 74021; 80053; 81003; 82948; 83880; 84484; 85027; 93005; 99281; 99285; G0378; J1644; J1815